=== PATIENT | male | born 2000 | race Caucasian/White ===

== ENCOUNTER 2020-10-02 04:39 | Emergency (ER) | payer OTHER | END 2020-10-02 05:42 | disposition home or self-care (01) | LOC: ERS 04:39 | DX: R00.2 Palpitations (principal) | CPT/HCPCS: 71045; 93005 ==

== ENCOUNTER 2022-03-02 21:22 | Emergency (ER) | payer OTHER ==
[2022-03-02] MEDS ORDERED: Ketorolac Tromethamine 30 MG/ML VIAL ONE (21:44)
== END 2022-03-02 23:11 | disposition home or self-care (01) ==
LOC: ERS 21:22
DX: S82.54XA Nondisplaced fracture of medial malleolus of right tibia, initial encounter for closed fracture (principal); W18.30XA Fall on same level, unspecified, initial encounter; Y93.22 Activity, ice hockey
CPT/HCPCS: 29515; 96372; J1885